=== PATIENT | female | born 1950 | race African-American/Black ===

== ENCOUNTER 2018-11-11 16:02 | Inpatient (IN) | payer OTHER ==
[~2018-11-11] VITALS: Ht 167.6 cm; Wt 66.2 kg
[2018-11-11] MEDS ORDERED: ASPIRIN 81MG TABLET PO ONE (17:15)
[2018-11-11] MEDS ORDERED: FUROSEMIDE 20MG/2ML VIAL IVP ONE (17:15)
[2018-11-11 17:25] LABS: BASOPHILS % 0.4 % (0.0-2.0); EOSINOPHILS % 0.2 % (0.0-5.0); HEMATOCRIT. 51.4 % (36.0-48.0); HEMOGLOBIN. 16.4 g/dL (12.0-16.0); LYMPHOCYTES % 19.8 % (20.0-50.0); MEAN CORPUSCULAR HEMOGLOBIN 29.9 pg (28.0-32.0); MEAN CORPUSCULAR VOLUME 93.7 fL (81.0-99.0); MEAN PLATELET VOLUME 9.1 fl (7.4-10.4); MONOCYTES % 6.1 % (2.0-8.0); NEUTROPHILS % 73.5 % (40.0-76.0); PLATELET 272 x1000/uL (130-400); RED BLOOD CELL COUNT 5.49 mill/uL (4.2-5.4); RED CELL DISTRIBUTION WIDTH 16.1 % (11.6-14.6)
[2018-11-11 17:29] LABS: CHLORIDE 98 mEq/L (98-107)
[2018-11-11] MEDS ORDERED: FAMOTIDINE 20MG/2ML VIAL IV ONE (17:30)
[2018-11-11] MEDS ORDERED: ONDANSETRON HCL 4MG/2ML INJ IV ONE (17:30)
[2018-11-11] MEDS ORDERED: MORPHINE SULFATE 10 MG/ML CPJ IV ONE (17:30)
[2018-11-11 17:32] LABS: INR 1.2; PARTIAL THROMBOPLASTIN TIME 25.9 sec (23.4-31.0); PROTHROMBIN TIME 11.7 sec (9.1-11.1)
[2018-11-11 17:33] LABS: ETHANOL BLOOD < 10 mg/dL
[2018-11-11 17:33] LABS: BG BASE EXCESS -1.8 mmol/L (-2.0-2.0); BG BILEVEL POS AIRWAY PRESSURE 15/5; BG CARBOXYHEMOGLOBIN 2.6 % (0.5-1.5); BG DEOXYHEMOGLOBIN 8.5 % (0.0-5.0); BG HCO3 ACT 24.2 mmol/L (22.0-26.0); BG METHEMOGLOBIN 0.3 % (0.0-1.5); BG OXYGEN SATURATION 91.2 % (92.0-98.5); BG OXYHEMOGLOBIN 88.6 % (94.0-97.0); BG PCO2 45.2 mmHg (35.0-45.0); BG PH 7.346 (7.350-7.450); BG PO2 65.5 mmHg (75.0-100.0); BG SAMPLE SITE RIGHT RADIAL; BG TOTAL HEMOGLOBIN 15.4 g/dL (12.0-18.0); BG VENT MODE MASK - BIPAP; BG VENT RATE 26 set
[2018-11-11] MEDS ORDERED: LEVOFLOXACIN 750MG PREMIX 150 ML IV ONE (18:45)
[2018-11-11] MEDS ORDERED: SODIUM CHLORIDE 0.9% 1,000 ML IV SCH (19:13)
[2018-11-11] MEDS ORDERED: MAGNESIUM/ALUMINUM HYDROXIDE/SIMETHICONE 30ML UDC PO PRN (19:15)
[2018-11-11] MEDS ORDERED: DOCUSATE SODIUM 100MG CAPSULE PO PRN (19:15)
[2018-11-11] MEDS ORDERED: GUAIFENESIN 200MG/10ML SUGAR FREE UDC PO PRN (19:15)
[2018-11-11] MEDS ORDERED: DEXTROSE 50% WATER 50ML SYRINGE IV PRN (19:15)
[2018-11-11] MEDS ORDERED: NA PHOS,M-B/NA PHOS,DI-BA ENEMA 118ML PR PRN (19:15)
[2018-11-11] MEDS ORDERED: IPRATROPIUM/ALBUTEROL 0.5-3(2.5)MG/3ML NEB INH PRN (19:15)
[2018-11-11] MEDS ORDERED: TRAMADOL 50MG TABLET PO PRN (19:15)
[2018-11-11] MEDS ORDERED: LORAZEPAM 1MG TABLET PO PRN (19:15)
[2018-11-11] MEDS ORDERED: ZOLPIDEM TARTRATE 5MG TABLET PO PRN (19:15)
[2018-11-11] MEDS ORDERED: ACETAMINOPHEN 325MG TABLET PO PRN (19:15)
[2018-11-11] MEDS ORDERED: MORPHINE SULFATE 10MG/5ML ORAL SOLN UDC PO PRN (19:15)
[2018-11-11] MEDS ORDERED: ONDANSETRON HCL 4MG/2ML INJ IV PRN (19:15)
[2018-11-11] MEDS ORDERED: CLONIDINE 0.1MG TABLET PO PRN (19:15)
[2018-11-11 20:15] LABS: CLARITY URINE CLOUDY (CLEAR); COLOR URINE YELLOW (YELLOW); KETONES URINE NEGATIVE (NEGATIVE); LEUKOCYTE ESTERASE URINE 1+ (NEGATIVE); NITRITE URINE NEGATIVE (NEGATIVE); OCCULT BLOOD URINE TRACE (NEGATIVE); PH URINE 5.5 (4.5-8.0); PROTEIN URINE 1+ (NEGATIVE); SPECIFIC GRAVITY URINE 1.008 (1.005-1.030); UROBILINOGEN URINE 0.2 E.U./dL (0.2-1.0)
[2018-11-11 20:26] LABS: *AMPHETAMINES SCREEN URINE NEGATIVE (NEGATIVE); *BARBITURATES SCREEN URINE NEGATIVE (NEGATIVE); *BENZODIAZEPINES SCREEN URINE NEGATIVE (NEGATIVE); *COCAINE SCREEN URINE NEGATIVE (NEGATIVE)
[2018-11-11 20:27] LABS: CANNABINOID URINE SCREEN NEGATIVE (NEGATIVE); METHADONE URINE SCREEN NEGATIVE (NEGATIVE); OPIATES URINE SCREEN PRESUMTIVE POSITIVE (NEGATIVE); PHENCYCLIDINE URINE SCREEN NEGATIVE (NEGATIVE)
[2018-11-11] MEDS: INSULIN LISPRO 100 UNITS/ML SUBCUT SCH (21:00)
[2018-11-11] MEDS: BLOOD SUGAR DIAGNOSTIC STRIP TEST SCH (21:00)
[2018-11-11 22:00] VITALS: BP 120/59
[2018-11-11] MEDS: GUAIFENESIN/DM 600MG/30MG ER TAB 12HR PO SCH (22:42)
[2018-11-11] MEDS: SPIRONOLACTONE 25MG TABLET PO SCH (22:43)
[2018-11-11] MEDS: ENOXAPARIN 40MG/0.4ML SYR SUBCUT SCH (22:44)
[2018-11-11] MEDS ORDERED: PIPERACILLIN/TAZ 3.375G PREMIX 50 ML IV SCH ×2 (23:00)
[2018-11-11 23:06] LABS: CREATINE KINASE MB FRACTION 2.9 ng/mL (0.5-3.6)
[2018-11-11] MEDS ORDERED: GLIP5TAB12 PO (23:10)
[2018-11-11] MEDS ORDERED: BIOT25008 PO (23:10)
[2018-11-11] MEDS ORDERED: PANT40TA4 PO (23:10)
[2018-11-11] MEDS ORDERED: LISI40TA4 PO (23:10)
[2018-11-11] MEDS ORDERED: ASCO-339 PO (23:10)
[2018-11-11] MEDS ORDERED: FURO20TA4 PO (23:10)
[2018-11-11] MEDS ORDERED: GLIP1TAB4 PO (23:10)
[2018-11-11] MEDS ORDERED: VITA400C19 PO (23:10)
[2018-11-11] MEDS ORDERED: CHOL100044 GT (23:10)
[2018-11-11] MEDS ORDERED: ASPI-1159 PO (23:10)
[2018-11-11] MEDS ORDERED: NAPR220C15 PO (23:10)
[2018-11-11] MEDS ORDERED: GLIP1TAB4 MT (23:10)
[2018-11-11] MEDS ORDERED: ATOR40TA70 PO (23:10)
[2018-11-11] MEDS ORDERED: DOCU-150 MT (23:10)
[2018-11-11] MEDS ORDERED: SIME80TA15 PO (23:10)
[2018-11-11] MEDS ORDERED: RANI150C12 PO (23:10)
[2018-11-11] MEDS ORDERED: CARV3.1242 MT (23:10)
[2018-11-11] MEDS: CEFEPIME 2,000 MG in DEXT 5% WATER 100 ML IV SCH (23:30)
[2018-11-11 23:49] VITALS: BP 111/63
[2018-11-12] VITALS (13 sets, daily range): BP systolic 91–121; BP diastolic 50–92
[2018-11-12] MEDS ORDERED: VANCOMYCIN 1 G PREMIX 200 ML IV SCH
[2018-11-12] MEDS: IPRATROPIUM/ALBUTEROL 0.5-3(2.5)MG/3ML NEB HHN SCH ×5 (00:48→20:41)
[2018-11-12] MEDS: BLOOD SUGAR DIAGNOSTIC STRIP TEST SCH ×4 (06:07→21:32)
[2018-11-12 07:22] LABS: CREATINE KINASE MB FRACTION 2.8 ng/mL (0.5-3.6)
[2018-11-12] MEDS: ASPIRIN 325MG EC TABLET PO SCH (08:02)
[2018-11-12] MEDS: ASCORBIC ACID 500 MG TABLET PO SCH ×2 (08:02→21:27)
[2018-11-12] MEDS: ZINC SULFATE 220 MG ( 50 ) CAPSULE PO SCH (08:02)
[2018-11-12] MEDS: GUAIFENESIN/DM 600MG/30MG ER TAB 12HR PO SCH (08:02)
[2018-11-12] MEDS: INSULIN LISPRO 100 UNITS/ML SUBCUT SCH ×4 (08:04→21:29)
[2018-11-12] MEDS: FUROSEMIDE 40MG/4ML VIAL IVP SCH ×2 (08:05→21:27)
[2018-11-12] MEDS: FAMOTIDINE 20MG TABLET PO SCH ×2 (08:07→21:27)
[2018-11-12] MEDS: SPIRONOLACTONE 25MG TABLET PO SCH ×2 (09:00→23:04)
[2018-11-12] MEDS: CEFEPIME 2,000 MG in DEXT 5% WATER 100 ML IV SCH ×2 (10:57→23:04)
[2018-11-12] MEDS: VANCOMYCIN 750 MG PREMIX 150 ML IV SCH (13:25)
[2018-11-12] MEDS ORDERED: BUDESONIDE 0.5MG/2ML NEB HHN SCH (13:30)
[2018-11-12 13:54] LABS: BASOPHILS % 0.4 % (0.0-2.0); EOSINOPHILS % 0.4 % (0.0-5.0); HEMATOCRIT. 41.1 % (36.0-48.0); HEMOGLOBIN. 13.5 g/dL (12.0-16.0); LYMPHOCYTES % 22.1 % (20.0-50.0); MEAN CORPUSCULAR HEMOGLOBIN 30.3 pg (28.0-32.0); MEAN CORPUSCULAR VOLUME 92.3 fL (81.0-99.0); MEAN PLATELET VOLUME 8.4 fl (7.4-10.4); MONOCYTES % 11.2 % (2.0-8.0); NEUTROPHILS % 65.9 % (40.0-76.0); PLATELET 227 x1000/uL (130-400); RED BLOOD CELL COUNT 4.45 mill/uL (4.2-5.4); RED CELL DISTRIBUTION WIDTH 15.4 % (11.6-14.6)
[2018-11-12 14:05] LABS: CHLORIDE 99 mEq/L (98-107)
[2018-11-12] MEDS: GUAIFENESIN 600MG ER TABLET PO SCH (21:27)
[2018-11-12] MEDS: FLUTICASONE PROPIONATE 50MCG/SPRAY BOTTLE BOTHNSTRLS SCH (21:32)
[2018-11-12] MEDS: ENOXAPARIN 40MG/0.4ML SYR SUBCUT SCH (23:05)
[2018-11-13] VITALS (10 sets, daily range): BP systolic 88–117; BP diastolic 59–74
[2018-11-13] MEDS: VANCOMYCIN 750 MG PREMIX 150 ML IV SCH ×2 (00:22→12:11)
[2018-11-13] MEDS: IPRATROPIUM/ALBUTEROL 0.5-3(2.5)MG/3ML NEB HHN SCH ×4 (00:23→11:48)
[2018-11-13] MEDS: BLOOD SUGAR DIAGNOSTIC STRIP TEST SCH ×2 (06:52→11:13)
[2018-11-13] MEDS: INSULIN LISPRO 100 UNITS/ML SUBCUT SCH ×2 (07:13→12:12)
[2018-11-13] MEDS: FUROSEMIDE 40MG/4ML VIAL IVP SCH (08:46)
[2018-11-13] MEDS: FAMOTIDINE 20MG TABLET PO SCH (08:47)
[2018-11-13] MEDS: ASPIRIN 325MG EC TABLET PO SCH (08:47)
[2018-11-13] MEDS: GUAIFENESIN 600MG ER TABLET PO SCH (08:47)
[2018-11-13] MEDS: ASCORBIC ACID 500 MG TABLET PO SCH (08:47)
[2018-11-13] MEDS: SPIRONOLACTONE 25MG TABLET PO SCH (08:47)
[2018-11-13] MEDS: ZINC SULFATE 220 MG ( 50 ) CAPSULE PO SCH (08:47)
[2018-11-13] MEDS: FLUTICASONE PROPIONATE 50MCG/SPRAY BOTTLE BOTHNSTRLS SCH (08:55)
[2018-11-13] MEDS: CEFEPIME 2,000 MG in DEXT 5% WATER 100 ML IV SCH (10:55)
== END 2018-11-13 16:18 | disposition short-term general hospital (02) | DRG 871 ==
LOC: ER 16:02 → 3WST 19:07 → EDBEDREQSVC 19:08 → EDBEDREQ 19:08 → ENRESERV 20:08 → 3WST 22:28
PROVIDERS: ADMIT Internal Medicine; ATTEND Internal Medicine
PROC: 5A09357 Assistance with Respiratory Ventilation, Less than 24 Consecutive Hours, Continuous Positive Airway Pressure (ICD-10-PCS; principal; 2018-11-11)
PROC: 5A09357 Assistance with Respiratory Ventilation, Less than 24 Consecutive Hours, Continuous Positive Airway Pressure (ICD-10-PCS; 2018-11-12)
DX: A41.9 Sepsis, unspecified organism (principal); J96.00 Acute respiratory failure, unspecified whether with hypoxia or hypercapnia; I50.43 Acute on chronic combined systolic (congestive) and diastolic (congestive) heart failure; J18.9 Pneumonia, unspecified organism; N39.0 Urinary tract infection, site not specified; E44.0 Moderate protein-calorie malnutrition; E11.65 Type 2 diabetes mellitus with hyperglycemia; B96.89 Other specified bacterial agents as the cause of diseases classified elsewhere; E83.51 Hypocalcemia; F17.210 Nicotine dependence, cigarettes, uncomplicated; I11.0 Hypertensive heart disease with heart failure; J31.0 Chronic rhinitis; Z71.6 Tobacco abuse counseling; Z88.0 Allergy status to penicillin; Z68.23 Body mass index [BMI] 23.0-23.9, adult; Z98.51 Tubal ligation status; Z79.82 Long term (current) use of aspirin; Z79.899 Other long term (current) drug therapy
CPT/HCPCS: 36415; 36600; 71045; 80061; 80305; 82375; 82550; 82553; 82805; 82962; 83036; 83605; 83880; 84484; 87077; 87186; 93005; 93306; 93970; 94640; 96374; 96375; 99291; G0482; J0692; J1650; J1815; J1940; J1956; J2270; J2405; J2543; J3370; J3490; J7050; J7060; J7620; J7626